=== PATIENT | male | born 1965 | race Two or more races ===

== ENCOUNTER → 2017-05-13 | Day surgery (SDC) | payer BC ==
[~2017-05-13] VITALS: Ht 167.6 cm; Wt 77.9 kg
[~2017-05-13] MED LIST: AMLODIPINE BESYL5 MG PO; BENTYL10 MG PO; PROTONIX40 MG PO
== END | disposition disaster alternative care site (69) ==
LOC: GPOC 05-11 14:00 → GEND 08:22 → GPOC 14:00
PROC: 0DB68ZX Excision of Stomach, Via Natural or Artificial Opening Endoscopic, Diagnostic (ICD-10-PCS; principal; 2017-05-13)
PROC: 0DB98ZX Excision of Duodenum, Via Natural or Artificial Opening Endoscopic, Diagnostic (ICD-10-PCS; 2017-05-13)
DX: K29.50 Unspecified chronic gastritis without bleeding (principal); M19.90 Unspecified osteoarthritis, unspecified site; I10 Essential (primary) hypertension; F17.210 Nicotine dependence, cigarettes, uncomplicated; Z98.890 Other specified postprocedural states; Z79.899 Other long term (current) drug therapy
CPT/HCPCS: J2001; J7030

== ENCOUNTER → 2017-05-15 | Outpatient (CLI) | payer BC | END | disposition disaster alternative care site (69) | LOC: GRAD 09:27 | DX: R10.9 Unspecified abdominal pain (principal); K76.0 Fatty (change of) liver, not elsewhere classified; K76.9 Liver disease, unspecified; R14.0 Abdominal distension (gaseous) | CPT/HCPCS: Q9967 ==

== ENCOUNTER → 2017-06-01 | Day surgery (SDC) | payer BC ==
[~2017-06-01] VITALS: Ht 167.6 cm; Wt 76.1 kg
== END | disposition disaster alternative care site (69) ==
LOC: GOPP 07:41
PROC: 0DBE8ZX Excision of Large Intestine, Via Natural or Artificial Opening Endoscopic, Diagnostic (ICD-10-PCS; principal; 2017-06-01)
DX: K63.5 Polyp of colon (principal); K64.4 Residual hemorrhoidal skin tags; G43.909 Migraine, unspecified, not intractable, without status migrainosus; M19.90 Unspecified osteoarthritis, unspecified site; I10 Essential (primary) hypertension; F17.210 Nicotine dependence, cigarettes, uncomplicated; Z98.890 Other specified postprocedural states; Z79.899 Other long term (current) drug therapy
CPT/HCPCS: J2001; J7030